=== PATIENT | male | born 2000 | race Caucasian/White ===

== ENCOUNTER 2019-01-29 11:10 | Emergency (ER) | payer OTHER ==
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
[2019-01-29] MEDS ORDERED: DIPHTH/TETANUS/ACEL. PERTUSSIS IM ONLY ONE (11:40)
[2019-01-29] MEDS ORDERED: TETRACAIN/EPI/LIDO GEL 3ML SYR TP ONE ×2 (11:40→13:10)
[2019-01-29] MEDS ORDERED: MORPHINE 4 MG/ML SDV IVP ONE (11:40)
[2019-01-29 12:07] LABS: INR 1.04
[2019-01-29 12:09] LABS: PLATELET COUNT, AUTOMATED 361 K/uL (150-450)
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
[2019-01-29] MEDS ORDERED: OXYC-865 PO (13:43)
[2019-01-29] MEDS ORDERED: oxyCODON/ACET (*)5/325MG (CII) 1 TAB TAB PO ONE (13:45)
[2019-01-29 13:54] VITALS: BP 106/49
== END 2019-01-29 14:06 | disposition home or self-care (01) ==
LOC: ER 11:35
DX: S42.022A Displaced fracture of shaft of left clavicle, initial encounter for closed fracture (principal); R79.89 Other specified abnormal findings of blood chemistry; M79.89 Other specified soft tissue disorders; J32.8 Other chronic sinusitis
CPT/HCPCS: 70450; 72125; 73000; 85025; 85610; 85730; 90471; 90715; 99283; J2270; L3982; 82040; 82247; 82310; 82374; 82435; 82565; 82947; 84075; 84132; 84155; 84295; 84450; 84460; 84520; 99284